=== PATIENT | female | born 1985 | race Caucasian/White ===

== ENCOUNTER → 2016-04-27 | Outpatient (CLI) | payer BC ==
[~2016-04-27] MED LIST: PREN-115 PO
--- NOTE | 2016-04-27 14:05 | Diagnostic Imaging Report ---
OB ultrasound. INDICATION: survey. FINDINGS: The heart rate is 142 beats per minute. The placenta is anterior. There is no placenta previa. The amniotic fluid amount appears normal. The cervix is long and closed. The bladder and evidence of three-vessel cord is seen. spine appears unremarkable. The lateral ventricles are within normal in size. The posterior fossa appears unremarkable with normal appearance of the cisterna magna. Normal cord insertion is seen. The four-chamber view and the stomach appear unremarkable. The growth parameters are all around 19 weeks and 5 days, within normal for gestational age of 19 weeks and 3 days by first trimester ultrasound. IMPRESSION: Appropriate interval growth. Completed survey. Dictated by: Dictated on workstation # [id number]
== END ==
LOC: RAD 09:16
PROVIDERS: ATTEND Family Medicine
DX: Z34.92 Encounter for supervision of normal pregnancy, unspecified, second trimester (principal); Z36 Encounter for antenatal screening of mother; Z3A.19 19 weeks gestation of pregnancy
CPT/HCPCS: 76805

== ENCOUNTER 2016-09-20 18:47 | Inpatient (IN) | payer BC ==
[~2016-09-20] VITALS: Ht 162.6 cm; Wt 85.0 kg
[2016-09-20] MEDS ORDERED: ZOLPIDEM 5 MG (AMBIEN) TAB PO PRN (19:00)
[2016-09-20] MEDS ORDERED: MINERAL OIL CONCENTRATE 99.9% 15 ML UDC TOP PRN (19:00)
[2016-09-20] MEDS ORDERED: DINOPROSTONE 10 MG (CERVIDIL) INSERT PV NR (19:00)
[2016-09-20 19:05] VITALS: BP 130/71
[2016-09-20] MEDS: D5 LR IV SOLUTION 1,000 ML IV SCH (19:20)
[2016-09-20 19:39] LABS: BASOPHILS % (AUTO) 0 % (0-10); EOSINOPHILS # (AUTO) 0.2 10^3/uL (0.0-0.3); EOSINOPHILS % (AUTO) 2 % (0-10); LYMPHOCYTES # (AUTO) 1.4 X 10^3 (1.0-4.0); LYMPHOCYTES % (AUTO) 15 % (12-44); MEAN CORPUSCULAR HEMOGLOBIN 31 PG (25-34); MEAN CORPUSCULAR HGB CONC 34 G/DL (32-36); MEAN CORPUSCULAR VOLUME 92 FL (80-99); MEAN PLATELET VOLUME 11.2 FL (7.4-10.4); MONOCYTES # (AUTO) 0.7 X 10^3 (0.0-1.0); MONOCYTES % (AUTO) 8 % (0-12); NEUTROPHILS % (AUTO) 75 % (42-75); PLATELET COUNT 171 10^3/uL (130-400); RED BLOOD COUNT 3.95 10^6/uL (4.35-5.85); RED CELL DISTRIBUTION WIDTH 13.4 % (10.0-14.5); WHITE BLOOD COUNT 9.4 10^3/uL (4.3-11.0)
[2016-09-20] MEDS ORDERED: BUTORPHANOL INJ 2 MG/ML (STADOL) VIAL IV PRN (20:15)
[2016-09-20] MEDS: CATHETER FLUSH 10 ML SYR IV SCH (22:05)
[2016-09-21] VITALS (42 sets, daily range): BP systolic 103–146; BP diastolic 67–87
[2016-09-21] MEDS ORDERED: DINOPROSTONE 10 MG (CERVIDIL) INSERT ONE (00:04)
[2016-09-21] MEDS ORDERED: DINOPROSTONE 10 MG (CERVIDIL) INSERT PV ONE (00:15)
[2016-09-21] MEDS: D5 LR IV SOLUTION 1,000 ML IV SCH ×2 (01:51→09:46)
[2016-09-21] MEDS: CATHETER FLUSH 10 ML SYR IV SCH ×2 (06:14→22:17)
--- NOTE | 2016-09-21 07:06 | History & Physical-OB ---
OB - Chief Complaint & HPI Date Date of Admission: Date of Admission: September 20, 2016 at 18:47 Chief Complaint/History OB-Reason for Admission/Chief: Induction of Labor Hx : 2 Hx Para: 1 Expected Date of Delivery: September 18, 2016 Gestational Age in Weeks: 40 Gestational Age in Days: 3 Admission Nurse Assessment Rev: Yes History of Labs GBS negative at 36 weeks gestation Allergies and Home Medications Allergies Coded Allergies: Penicillins (Verified Allergy, Unknown, 06/20/12) Home Medications Vit #108/Iron/Fa 1 Each Tablet, 1 EACH PO DAILY, (Reported) OB - History Hx of Present Care: Yes Ultrasounds: Normal mid trimester US Obstetrical Complications: None Medical Complications: None Obstetrical History Hx Termination: No Hx Multiple Gestation: No Hx Stillbirth: No Hx Complication: No Hx Induced Hypertens: No Hx Maternal Gestational Diabet: No Delivery History Hx Dystocia: No Hx Large For Gestational Age I: No Hx Small for Gestational Age I: No Hx Section: No Hx Vaginal Delivery Post C-Sec: No Hx Blood Disorders: No Adverse Rxn to Tranfusion: No Patient Past Medical History no chronic medical problems Social History/Family History Recent Infectious Disease Expo: No Sexually Transmitted Disease: No Alcohol Use: Denies Use Recreational Drug Use: No Immunizations Hepatitis A: No Hepatitis B: No Tetanus Booster (TDap): Less than 5yrs Date of Influenza Vaccine: Feb 15, 2012 OB - Admission Exam Physical Exam Vitals: Vital Signs 09/21/16 04:36 Temp 98.0 Pulse 86 Resp 18 B/P (MAP) 126/72 HEENT: Moist Membranes Heart: Rhythm Normal Lungs: Clear Abdomen: Gravid Extremities: Normal Cervical Dilatation: 1cm Effacement: 50% Station: -3 Membranes: Intact Heart Rate: 130's Accelerations: Accelerations Present Intensity: Mild Huber Scoring Tool (Modified) Dilation (cm): 1-2cm (1) Effacement (%): 31-51% (1) Descent/Station: -3 (0) Cervix Consistency: Medium(1) Cervix Position: Middle/Mid-Position (1) Add 1 point for: Each previous vaginal delivery (1) Huber Score: 5 Labs Laboratory Tests Test 09/20/16 19:20 Range/Units White Blood Count 9.4 4.3-11.0 10^3/uL Red Blood Count 3.95 L 4.35-5.85 10^6/uL Hemoglobin 12.4 11.5-16.0 G/DL Hematocrit 36 35-52 % Mean Corpuscular Volume 92 80-99 FL Mean Corpuscular Hemoglobin 31 25-34 PG Mean Corpuscular Hemoglobin Concent 34 32-36 G/DL Red Cell Distribution Width 13.4 10.0-14.5 % Platelet Count 171 130-400 10^3/uL Mean Platelet Volume 11.2 H 7.4-10.4 FL Neutrophils (%) (Auto) 75 42-75 % Lymphocytes (%) (Auto) 15 12-44 % Monocytes (%) (Auto) 8 0-12 % Eosinophils (%) (Auto) 2 0-10 % Basophils (%) (Auto) 0 0-10 % Neutrophils # (Auto) 7.0 1.8-7.8 X 10^3 Lymphocytes # (Auto) 1.4 1.0-4.0 X 10^3 Monocytes # (Auto) 0.7 0.0-1.0 X 10^3 Eosinophils # (Auto) 0.2 0.0-0.3 10^3/uL Basophils # (Auto) 0.0 0.0-0.1 10^3/uL OB - Assessment/Plan/Diagnosis Assessment Assessment: induction of labor Plan Plan: Induction Induction Method: other (cervidil) GUERRERO DIGGS MD September 21, 2016 07:06
[2016-09-21] MEDS ORDERED: OXYTOCIN/NORMAL SALINE 500 ML IV SCH ×2 (07:14→13:59)
[2016-09-21] MEDS ORDERED: LACTATED RINGERS 1,000 ML IV ONE (07:22)
[2016-09-21] MEDS ORDERED: SUFENTA 0.6MCG/ML BUPIVA 0.125 100 ML ONE (07:23)
[2016-09-21] MEDS ORDERED: fentaNYL INJECTION 100 MCG/2 ML AMP ONE (08:12)
[2016-09-21] MEDS ORDERED: BUPIVACAINE 0.25% 30 ML (SENSORCAINE) VIAL ONE (08:12)
[2016-09-21] MEDS ORDERED: LACTATED RINGERS 1,000 ML IV SCH (08:54)
[2016-09-21] MEDS ORDERED: EPIDURAL (SUFENTA 0.6MCG/ML BUPIVA 0.125%) 100 ML BAG EPI PRN (09:00)
[2016-09-21] MEDS ORDERED: diphenhydrAMINE 50 MG/ML INJ (BENADRYL) IV PRN (09:00)
[2016-09-21] MEDS ORDERED: METOCLOPRAMIDE INJ 10 MG/2 ML (REGLAN) IV PRN (09:00)
[2016-09-21] MEDS ORDERED: NALOXONE 0.4 MG/ML 1 ML (NARCAN) VIAL IV PRN ×2 (09:00)
[2016-09-21] MEDS ORDERED: ONDANSETRON 4 MG/2 ML (SDV) Z0FRAN IV PRN (09:00)
[2016-09-21] MEDS ORDERED: MEPIVACAINE (CARBOCAINE) 2% 50 ML VIAL ONE (13:34)
--- NOTE | 2016-09-21 13:59 | OB Labor & Delivery Record ---
L&D History Date of Service Date of Service: September 21, 2016 History Expected Date of Delivery: September 18, 2016 Gestational Age in Weeks: 40 Hx : 2 Hx Para: 1 Complications Events: Routine care Operative Indications (Cesarea: N/A-Vaginal Delivery Intrapartal Events: Febrile (at 99) L&D Stage1 Stage One Onset of Labor - Date: September 21, 2016 Onset of Labor - Time: 07:10 Monitors and Tracing Monitor Mode: External Heart Rate: 155 Monitor Accelerations: Uniform Monitor Decelerations: None Station: 0 Short Term Variability: Present Presentation: Vertex Vital Signs VS - Last 72 Hours, by Label 09/20/16 09/21/16 09/21/16 09/21/16 19:05 00:10 04:36 07:30 Temp 98.5 97.6 98.0 Pulse 110 88 86 75 Resp 18 18 18 18 B/P (MAP) 130/71 119/78 126/72 137/86 09/21/16 09/21/16 09/21/16 09/21/16 07:45 08:00 08:15 08:24 Pulse 71 78 84 101 Resp 18 18 18 20 B/P (MAP) 138/87 121/80 123/84 146/70 Pulse Ox 99 09/21/16 09/21/16 09/21/16 09/21/16 08:30 08:35 08:40 08:45 Temp 99.3 Pulse 79 93 76 82 Resp 18 20 20 18 B/P (MAP) 128/80 129/85 125/79 121/81 Pulse Ox 98 98 98 99 09/21/16 09/21/16 09/21/16 09/21/16 08:50 08:55 09:00 09:15 Pulse 81 81 71 68 Resp 20 20 18 18 B/P (MAP) 125/78 125/78 117/75 118/73 Pulse Ox 98 98 98 98 09/21/16 09/21/16 09/21/16 09/21/16 09:30 09:45 10:00 10:15 Pulse 68 75 85 75 Resp 18 18 18 18 B/P (MAP) 116/74 118/72 110/71 110/71 Pulse Ox 98 99 99 98 09/21/16 09/21/16 09/21/16 09/21/16 10:30 10:45 11:00 11:11 Temp 99.3 Pulse 78 82 91 Resp 18 18 18 B/P (MAP) 113/71 103/69 111/75 Pulse Ox 98 99 100 09/21/16 09/21/16 09/21/16 09/21/16 11:15 11:30 11:45 12:00 Pulse 90 85 76 82 Resp 18 18 18 18 B/P (MAP) 108/75 112/71 118/75 128/74 Pulse Ox 99 100 100 99 09/21/16 09/21/16 09/21/16 12:11 12:15 12:30 Temp 99.1 Pulse 75 100 Resp 18 18 B/P (MAP) 135/78 126/82 Pulse Ox 100 100 Signs of Distress by FHT Signs of Distress no Rupture of Membranes Spontaneous Ruture of Membrane: No Amniotic Membrane Rupture Time: 0710 Amniotic Membrane Fluid Desc.: Clear Induction/Anesthesia Epidural Cath Placement - Time: 0830 L&D Stage2 Stage Two Stage II Date: September 21, 2016 Stage II Time: 13:30 Monitors and Tracing Monitor Mode: External Heart Rate: 155 Monitor Accelerations: Uniform Monitor Decelerations: Variable Glove Sewer Variability: Average (6-10) Short Term Variability: Present Position: Right Occiput Anterior Presentation: Vertex Cord Descript/Complications Cord Vessel Description: 3 Vessels Delivery Type Delivery Method: Spontaneous Vaginal Episiotomy/Perineal Laceration Laceraction(s)/Extensions: Yes Episiotomy Description: Midline Sutures Used: Vicryl Condition of Infant Delivery 1 minute Comment: 8 5 minute Comment: 8 Condition of Condition of : Living Exam: No Observed Abnormalities Resuscitation Resuscitation: N/A - Spontaneous Resp L&D Stage3 Stage Three Stage III Date: September 21, 2016 Stage III Time: 13:35 Pictocin Pitocin Administration mu/min: 8 Pitocin ml/hr: 8 Pitocin Administration Comment: pitocin increased per protocol Placenta Delivery Placenta Delivery: Spontaneous Delivery Summary Summary Vaginal blood loss >500ml: No 250 Condition of Delivery Examined: Cervix Examined Post Hemorrhage: No GUERRERO DIGGS MD September 21, 2016 13:59
[2016-09-21] MEDS ORDERED: TETANUS,DIPTH,PERTUSS P/F (BOOSTRIX) 0.5 ML VIAL IM ONE (14:00)
[2016-09-21] MEDS ORDERED: MEASLES,MUMPS,RUBELLA 1 EA INJ SQ ONE (14:00)
[2016-09-21] MEDS ORDERED: HYDROcodone/APAP 5 MG/325 MG (LORTAB) TAB PO PRN (14:00)
[2016-09-21] MEDS ORDERED: WITCH HAZEL(TUCKS) 40 EA JAR TOP PRN (14:00)
[2016-09-21] MEDS ORDERED: BENZOCAINE/MENTHOL (DERMOPLAST) 56 ML CAN TP PRN (14:00)
[2016-09-21] MEDS: IBUPROFEN 600 MG (MOTRIN) TAB PO SCH ×2 (17:02→22:15)
[2016-09-22 00:10] VITALS: BP 119/82
[2016-09-22 04:31] VITALS: BP 109/70
[2016-09-22] MEDS: IBUPROFEN 600 MG (MOTRIN) TAB PO SCH ×2 (04:32→10:49)
[2016-09-22 06:11] LABS: BASOPHILS % (AUTO) 0 % (0-10); EOSINOPHILS # (AUTO) 0.2 10^3/uL (0.0-0.3); EOSINOPHILS % (AUTO) 2 % (0-10); LYMPHOCYTES # (AUTO) 1.7 X 10^3 (1.0-4.0); LYMPHOCYTES % (AUTO) 15 % (12-44); MEAN CORPUSCULAR HEMOGLOBIN 32 PG (25-34); MEAN CORPUSCULAR HGB CONC 34 G/DL (32-36); MEAN CORPUSCULAR VOLUME 93 FL (80-99); MEAN PLATELET VOLUME 10.9 FL (7.4-10.4); MONOCYTES # (AUTO) 0.9 X 10^3 (0.0-1.0); MONOCYTES % (AUTO) 8 % (0-12); NEUTROPHILS # (AUTO) 8.7 X 10^3 (1.8-7.8); NEUTROPHILS % (AUTO) 76 % (42-75); PLATELET COUNT 157 10^3/uL (130-400); RED BLOOD COUNT 3.53 10^6/uL (4.35-5.85); RED CELL DISTRIBUTION WIDTH 13.7 % (10.0-14.5); WHITE BLOOD COUNT 11.5 10^3/uL (4.3-11.0)
[2016-09-22] MEDS: CATHETER FLUSH 10 ML SYR IV SCH (06:51)
[2016-09-22] MEDS ORDERED: PRENATAL VITAMIN 1 EA TAB PO SCH (07:00)
--- NOTE | 2016-09-22 07:27 | Discharge Inst-Women's Service ---
Discharge Inst-Women's Serv Consults/Follow Up Additional Follow Up: Yes (Dr Diggs in 6 weeks.) Activity Activity: Activity as Tolerated Driving Instructions: You May Drive Nothing Inside Vagina: No [place] (for 6 weeks) Diet Discharge Diet: No Restrictions Return to The Hospital For: as below Symptoms to Report to : Bleeding Excessive, Pain Increased, Fever Over 101 Degrees F, Vaginal Discharge Foul For Any Problems or Questions: Contact Your Physician GUERRERO DIGGS MD Sep 22, 2016 07:27
--- NOTE | 2016-09-22 07:32 | Discharge Summary ---
Diagnosis/Chief Complaint Date of Admission September 20, 2016 at 18:47 Date of Discharge September 22, 2016 Discharge Date: Sep 22, 2016 Discharge Time: 1400 Admission Diagnosis Admission Diagnosis 1. Intrauterine at 40 weeks gestation Discharge Diagnosis 1. Intrauterine at 40 weeks gestation Reason Hospital Visit 31-year-old 2 now term 2 female who initially presented to labor and delivery during the evening of September 20 for induction of labor at 40 weeks 3 days gestation. Patient's care was essentially unremarkable. She had an EDC of September 17, 2016. She was admitted for induction of labor with Cervidil ripening but upon presentation she was noted to have a contraction pattern that had developed. Discharge Summary-OBS Procedures 1. Epidural per anesthesia 2. Spontaneous vaginal delivery 3. Repair of midline episiotomy Discharge Physical Examination Allergies: Coded Allergies: Penicillins (Verified Allergy, Unknown, 06/20/12) Vitals & I&Os Vital Signs Date Time Temp Pulse Resp B/P (MAP) Pulse Ox O2 Delivery O2 Flow Rate FiO2 09/22/16 04:31 98.2 77 18 109/70 09/22/16 00:10 97 General Appearance: No Acute Distress Respiratory: Clear to Auscultation Cardiovascular: Regular Rate Abdominal: Soft (with uterus firm) Extremities: No Edema Skin: No Rashes Hospital Course patient was admitted during the evening of September 20, 2016 for Cervidil ripening. Upon presentation she was noted to be george naturally. The Cervidil was withheld and she was monitored. Initially she was noted to be 1 cm but changed to 3 cm naturally without AROM or Cervidil. Patient was monitored overnight and she underwent amniotomy at 07 10 in the morning of September 21, 2016. Fluid was noted to be clear at that time. She required low-dose Pitocin augmentation to achieve a natural labor pattern at 8 mU/m. Epidural was placed early in her labor course by anesthesia and she tolerated well and gained excellent pain relief. Once the completion she was allowed to push and delivered a term viable male with Apgars of 8 at 1 minute and 8 at 5 minutes. Delivery was accomplished at 1330 on September 21, 2016. There was a midline episiotomy and this was repaired with 3-0 Vicryl. Following delivery patient underwent routine care orders. She had no complications during the remainder of her hospital stay. Her hemoglobin in the morning after delivery was noted to be 11.2 compared to 12.4 on admission. She had no complaints. She was tolerating regular diet. Patient was ambulatory. She was without chest pain or shortness of breath. She was felt ready for dismissal 24 hours after delivery. All questions answered and she will follow up in 6 weeks. Pending Labs Laboratory Tests 09/22/16 05:51: White Blood Count 11.5, Red Blood Count 3.53, Hemoglobin 11.2, Hematocrit 33, Mean Corpuscular Volume 93, Mean Corpuscular Hemoglobin 32, Mean Corpuscular Hemoglobin Concent 34, Red Cell Distribution Width 13.7, Platelet Count 157, Mean Platelet Volume 10.9, Neutrophils (%) (Auto) 76, Lymphocytes (%) (Auto) 15 , Monocytes (%) (Auto) 8, Eosinophils (%) (Auto) 2, Basophils (%) (Auto) 0, Neutrophils # (Auto) 8.7, Lymphocytes # (Auto) 1.7, Monocytes # (Auto) 0.9, Eosinophils # (Auto) 0.2, Basophils # (Auto) 0.0 Discharge Instructions to patient/family Please see electonic discharge instructions given to patient. Discharge Medications Reviewed and agree with Discharge Medication list on patient's Discharge Instruction sheet Clinical Quality Measures DVT/VTE Risk/Contraindication: Risk Factor Score Per Nursin RFS Level Per Nursing on Admit: 1=Low/No VTE PPX GUERRERO DIGGS MD Sep 22, 2016 07:32
[2016-09-22 08:00] VITALS: BP 114/74
[2016-09-22 12:00] VITALS: BP 118/79
--- NOTE | 2016-09-22 12:26 | Anesthesia-Regional Post-Op ---
Regional Patient Condition Mental Status: Alert, Oriented x3 Circulation: Same as Pre-Op Headache: Absent Sensation: Full Recovery Motor Block: Absent Post Op Complications Complications None Follow Up Care/Instructions Patient Instructions None needed. Anesthesia/Patient Condition Patient is doing well, no complaints, stable vital signs, no apparent adverse anesthesia problems. No complications reported per nursing. FABIENNE RUANO CRNA Sep 22, 2016 12:25
[2016-09-22] MEDS ORDERED: TETANUS,DIPTH,PERTUSS P/F (BOOSTRIX) 0.5 ML VIAL IM ONE (14:05)
[2016-09-22 14:30] VITALS: BP 118/79
== END 2016-09-22 15:20 | disposition home or self-care (01) | DRG 775 ==
LOC: LDRP 18:47 → ENPENDDIS 09-22 14:00
PROVIDERS: ADMIT Family Medicine; ATTEND Family Medicine
PROC: 10E0XZZ Delivery of Products of Conception, External Approach (ICD-10-PCS; principal; 2016-09-21)
PROC: 0W8NXZZ Division of Female Perineum, External Approach (ICD-10-PCS; 2016-09-21)
DX: O80 Encounter for full-term uncomplicated delivery (principal); Z37.0 Single live birth; Z3A.40 40 weeks gestation of pregnancy; Z23 Encounter for immunization
CPT/HCPCS: 36415; 85025; 86850; 86900; 86901; 90715